=== PATIENT | female | born 1970 | race American Indian/Alaskan Native ===

== ENCOUNTER 2017-01-18 21:08 | Emergency (ER) | payer OTHER, BC ==
[2017-01-18 21:18] VITALS: BP 155/89
[2017-01-19] MEDS ORDERED: PERCOCET 5/325 PO ONE (01:19)
[2017-01-19] MEDS ORDERED: FLEXERIL PO ONE (01:19)
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
== END 2017-01-19 02:25 | disposition home or self-care (01) ==
LOC: ED 21:08
DX: M79.1 Myalgia (principal); V89.2XXA Person injured in unspecified motor-vehicle accident, traffic, initial encounter; Y92.488 Other paved roadways as the place of occurrence of the external cause; Y93.89 Activity, other specified; Y99.8 Other external cause status
CPT/HCPCS: 99282

== ENCOUNTER 2017-10-28 20:18 | Emergency (ER) | payer OTHER, BC ==
[2017-10-29] MEDS ORDERED: MOTRIN PO ONE (05:12)
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
[2017-10-29 07:21] VITALS: BP 146/66
== END 2017-10-29 06:30 | disposition home or self-care (01) ==
LOC: ED 20:18
DX: S13.4XXA Sprain of ligaments of cervical spine, initial encounter (principal); S39.012A Strain of muscle, fascia and tendon of lower back, initial encounter; R20.2 Paresthesia of skin; V89.2XXA Person injured in unspecified motor-vehicle accident, traffic, initial encounter; Y93.89 Activity, other specified; Y99.8 Other external cause status; Y92.410 Unspecified street and highway as the place of occurrence of the external cause
CPT/HCPCS: 99282

== ENCOUNTER 2020-12-16 14:42 | Outpatient (CLI) | payer OTHER, MEDICAID ==
--- NOTE | 2020-12-17 07:52 | Mammography Report ---
DIGITAL SCREENING MAMMOGRAM WITH CAD, 12/17/2020 CLINICAL INFORMATION / INDICATION: Routine screening TECHNIQUE: Digital bilateral 2D mammography was obtained in the craniocaudal and mediolateral obliqu e projections. This examination was interpreted with the benefit of Computer-Aided Detection analysis . COMPARISON: 04/04/2013 FINDINGS: Breast Density: The breasts are almost entirely fatty. No dominant mass, suspicious calcifications, or architectural distortion in either breast. IMPRESSION: No mammographic evidence of malignancy. Follow up recommendation: Routine yearly BI-RADS Category 1: Negative. A "normal" or negative report should not discourage follow up or biopsy of a clinically significant f inding. A written summary of these findings will be mailed to the patient. The patient will be entered into a mammography reporting system which will generate a reminder letter for the patient's next appointmen t at the appropriate interval. The [employer] recommends yearly mammograms starting at age 40 and continuing as l shantanu as a woman is in good health. Breast MRI is recommended for women with an approximate 20-25% or greater lifetime risk of breast cancer, including women with a strong family history of breast or ova oscar cancer or who have been treated for Hodgkin's disease. Signer Name: Sd Leblanc MD Signed: 12/17/2020 7:47 AM Workstation Name: [id number]
== END 2020-12-16 14:43 | disposition home or self-care (01) ==
LOC: MAMMO 14:42
PROVIDERS: ATTEND Obstetrics & Gynecology
DX: Z12.31 Encounter for screening mammogram for malignant neoplasm of breast (principal)
CPT/HCPCS: 77067